=== PATIENT | female | born 1935 | race Caucasian/White ===

== ENCOUNTER 2016-11-18 10:15 | Emergency (ER) | payer MEDICAID ==
[~2016-11-18] VITALS: Ht 165.1 cm; Wt 63.0 kg
[2016-11-18 11:23] LABS: BASOPHILS % 0.2 % (0.0-2.0); EOSINOPHILS % 0.5 % (0.0-5.0); HEMATOCRIT. 39.4 % (36.0-48.0); HEMOGLOBIN. 13.1 g/dL (12.0-16.0); LYMPHOCYTES % 7.8 % (20.0-50.0); MEAN CORPUSCULAR HEMOGLOBIN 28.7 pg (28.0-32.0); MEAN CORPUSCULAR HGB CONC 33.2 g/dL (31.0-37.0); MEAN CORPUSCULAR VOLUME 86.6 fL (81.0-99.0); MEAN PLATELET VOLUME 8.9 fl (7.4-10.4); MONOCYTES % 5.8 % (2.0-8.0); NEUTROPHILS % 85.7 % (40.0-76.0); PLATELET 157 x1000/uL (130-400); RED BLOOD CELL COUNT 4.55 mill/uL (4.2-5.4); RED CELL DISTRIBUTION WIDTH 12.7 % (11.6-14.6)
[2016-11-18 11:25] LABS: CHLORIDE 100 mEq/L (98-107)
[2016-11-18 11:29] LABS: INR 1.1; PROTHROMBIN TIME 11.2 sec
[2016-11-18 11:37] LABS: ALANINE AMINOTRANSFERASE 26 IU/L (13-61); ALBUMIN 3.8 g/dL (3.4-5.0); ANION GAP 11; CALCIUM 8.8 mg/dL (8.5-10.1); CARBON DIOXIDE 34 mEq/L (21-32); INDEX HEMOLYSI 1 (1-3); INDEX ICTERIC 1 (1-4); INDEX LIPEMIC 1 (1-3); NT PRO B-TYPE NATRIURETIC PEP 379 pg/mL (5-125); TROPONIN I < 0.02 ng/mL (0.00-0.04); UREA NITROGEN BLOOD 23 mg/dL (7-21); eGFR > 60 mL/min (>60)
[2016-11-18] MEDS ORDERED: ONDANSETRON HCL 4MG/2ML VIAL IV ONE (11:45)
[2016-11-18 14:23] VITALS: BP 151/73
== END 2016-11-18 14:26 | disposition home or self-care (01) ==
LOC: ER 11:33
DX: R53.1 Weakness (principal); R05 Cough; R11.2 Nausea with vomiting, unspecified; R10.13 Epigastric pain; I10 Essential (primary) hypertension; E11.9 Type 2 diabetes mellitus without complications; Z95.5 Presence of coronary angioplasty implant and graft
CPT/HCPCS: 36415; 71010; 74176; 80053; 83880; 84484; 85025; 85610; 93005; 96374; 99285; J2405

== ENCOUNTER 2017-02-17 11:24 | Emergency (ER) | payer MEDICAID ==
[~2017-02-17] VITALS: Ht 165.1 cm; Wt 65.0 kg
[2017-02-17] MEDS ORDERED: TRAMADOL 50MG TABLET PO ONE (12:30)
[2017-02-17 12:40] LABS: BASOPHILS % 0.5 % (0.0-2.0); EOSINOPHILS % 0.8 % (0.0-5.0); HEMATOCRIT. 40.5 % (36.0-48.0); HEMOGLOBIN. 13.5 g/dL (12.0-16.0); LYMPHOCYTES % 25.3 % (20.0-50.0); MEAN CORPUSCULAR HEMOGLOBIN 28.5 pg (28.0-32.0); MEAN CORPUSCULAR VOLUME 85.7 fL (81.0-99.0); MEAN PLATELET VOLUME 8.8 fl (7.4-10.4); MONOCYTES % 7.4 % (2.0-8.0); PLATELET 155 x1000/uL (130-400); RED BLOOD CELL COUNT 4.73 mill/uL (4.2-5.4); RED CELL DISTRIBUTION WIDTH 13.3 % (11.6-14.6)
[2017-02-17 12:55] LABS: CARBON DIOXIDE 33 mEq/L (21-32); CHLORIDE 100 mEq/L (98-107); TROPONIN I < 0.02 ng/mL (0.00-0.04)
[2017-02-17 13:03] LABS: INR 1.1; PARTIAL THROMBOPLASTIN TIME 26.8 sec (24.0-34.0)
[2017-02-17 15:39] VITALS: BP 167/66
== END 2017-02-17 15:45 | disposition home or self-care (01) ==
LOC: ER 11:34
DX: M54.9 Dorsalgia, unspecified (principal); I10 Essential (primary) hypertension; E11.9 Type 2 diabetes mellitus without complications; I51.9 Heart disease, unspecified; M25.519 Pain in unspecified shoulder
CPT/HCPCS: 36415; 71010; 80053; 82962; 83690; 84484; 85025; 85610; 85730; 93005; 99285

== ENCOUNTER 2017-08-17 11:51 | Inpatient (IN) | payer MEDICAID ==
[~2017-08-17] VITALS: Ht 165.1 cm; Wt 63.5 kg
[2017-08-17 13:07] LABS: CLARITY URINE CLEAR (CLEAR); COLOR URINE YELLOW (YELLOW); KETONES URINE NEGATIVE (NEGATIVE); LEUKOCYTE ESTERASE URINE NEGATIVE (NEGATIVE); NITRITE URINE NEGATIVE (NEGATIVE); OCCULT BLOOD URINE NEGATIVE (NEGATIVE); PROTEIN URINE NEGATIVE (NEGATIVE); SPECIFIC GRAVITY URINE 1.028 (1.005-1.030)
[2017-08-17 13:19] LABS: BASOPHILS % 0.3 % (0.0-2.0); EOSINOPHILS % 1.3 % (0.0-5.0); HEMATOCRIT. 40.8 % (36.0-48.0); HEMOGLOBIN. 13.4 g/dL (12.0-16.0); LYMPHOCYTES % 21.2 % (20.0-50.0); MEAN CORPUSCULAR HEMOGLOBIN 28.5 pg (28.0-32.0); MEAN CORPUSCULAR VOLUME 86.6 fL (81.0-99.0); MEAN PLATELET VOLUME 9.2 fl (7.4-10.4); MONOCYTES % 7.7 % (2.0-8.0); NEUTROPHILS % 69.5 % (40.0-76.0); PLATELET 179 x1000/uL (130-400); RED BLOOD CELL COUNT 4.72 mill/uL (4.2-5.4)
[2017-08-17 13:21] LABS: PROTHROMBIN TIME 10.8 sec (9.4-11.6)
[2017-08-17 13:36] LABS: CARBON DIOXIDE 31 mEq/L (21-32); CHLORIDE 100 mEq/L (98-107); TROPONIN I < 0.02 ng/mL (0.00-0.04)
[2017-08-17 13:44] LABS: *AMPHETAMINES SCREEN URINE NEGATIVE (NEGATIVE); *BARBITURATES SCREEN URINE NEGATIVE (NEGATIVE); *BENZODIAZEPINES SCREEN URINE NEGATIVE (NEGATIVE); *COCAINE SCREEN URINE NEGATIVE (NEGATIVE); CANNABINOID URINE SCREEN NEGATIVE (NEGATIVE); METHADONE URINE SCREEN NEGATIVE (NEGATIVE); OPIATES URINE SCREEN NEGATIVE (NEGATIVE); PHENCYCLIDINE URINE SCREEN NEGATIVE (NEGATIVE)
[2017-08-17] MEDS ORDERED: ACETAMINOPHEN 325MG TABLET PO ONE (16:00)
[2017-08-17] MEDS ORDERED: IPRATROPIUM/ALBUTEROL 0.5-3(2.5)MG/3ML NEB INH PRN (20:00)
[2017-08-17] MEDS ORDERED: DOCUSATE SODIUM 100MG CAPSULE PO PRN (20:00)
[2017-08-17] MEDS ORDERED: CLONIDINE 0.1MG TABLET PO PRN (20:00)
[2017-08-17] MEDS ORDERED: MAGNESIUM/ALUMINUM HYDROXIDE/SIMETHICONE 30ML UDC PO PRN (20:00)
[2017-08-17] MEDS ORDERED: ACETAMINOPHEN 325MG TABLET PO PRN (20:00)
[2017-08-17] MEDS ORDERED: ONDANSETRON HCL 4MG/2ML VIAL IV PRN (20:00)
[2017-08-17] MEDS ORDERED: ENOXAPARIN 40MG/0.4ML SYR SUBCUT SCH (21:00)
[2017-08-17 21:53] VITALS: BP 190/61
[2017-08-17] MEDS: HYDROCODONE/ACETAMINOPHEN 5/325MG TABLET PO PRN (23:27)
[2017-08-18] VITALS: BP 184/64
[2017-08-18 01:15] LABS: CARBON DIOXIDE 31 mEq/L (21-32); CHLORIDE 100 mEq/L (98-107); CREATINE KINASE 319 IU/L (26-192); CREATINE KINASE MB FRACTION 6.8 ng/mL (0.5-3.6); TROPONIN I 0.04 ng/mL (0.00-0.04)
[2017-08-18] MEDS ORDERED: DEXTROSE 50% WATER 50ML SYRINGE IV PRN (02:00)
[2017-08-18 04:00] VITALS: BP 141/63
[2017-08-18] MEDS ORDERED: ASPI-867 PO (06:05)
[2017-08-18] MEDS ORDERED: ATEN-42 PO (06:06)
[2017-08-18] MEDS ORDERED: LOSA1TAB37 PO (06:08)
[2017-08-18] MEDS ORDERED: GABA-529 PO (06:09)
[2017-08-18] MEDS ORDERED: NPH,100V SQ (06:12)
[2017-08-18] MEDS ORDERED: ALBU18HF2 IH (06:12)
[2017-08-18] MEDS ORDERED: ACET-2178 PO (06:16)
[2017-08-18] MEDS ORDERED: SIMV20TA6 PO (06:16)
[2017-08-18] MEDS ORDERED: DIPH25CA83 PO (06:17)
[2017-08-18] MEDS: BLOOD SUGAR DIAGNOSTIC STRIP TEST SCH ×2 (06:33→12:40)
[2017-08-18] MEDS: INSULIN LISPRO 100 UNITS/ML SUBCUT SCH ×2 (07:08→13:31)
[2017-08-18 08:00] VITALS: BP 157/47
[2017-08-18 11:20] LABS: CREATINE KINASE MB FRACTION 6.4 ng/mL (0.5-3.6); TROPONIN I 0.02 ng/mL (0.00-0.04)
[2017-08-18] MEDS: HYDROCODONE/ACETAMINOPHEN 5/325MG TABLET PO PRN (11:44)
[2017-08-18 12:00] VITALS: BP 164/54
[2017-08-18 16:00] VITALS: BP 152/48
== END 2017-08-18 16:26 | disposition left against medical advice (07) | DRG 347 ==
LOC: ER 12:58 → 7WST 18:07 → ENRESERV 19:45
PROVIDERS: ADMIT Internal Medicine; ATTEND Internal Medicine
DX: M51.36 Other intervertebral disc degeneration, lumbar region (principal); E11.65 Type 2 diabetes mellitus with hyperglycemia; I10 Essential (primary) hypertension; M54.16 Radiculopathy, lumbar region; M50.30 Other cervical disc degeneration, unspecified cervical region; E87.1 Hypo-osmolality and hyponatremia; G89.29 Other chronic pain; M19.90 Unspecified osteoarthritis, unspecified site; Z79.899 Other long term (current) drug therapy; Z79.82 Long term (current) use of aspirin; Z79.4 Long term (current) use of insulin
CPT/HCPCS: 36415; 70450; 71010; 72040; 72070; 72100; 72141; 72146; 72148; 80048; 80053; 80061; 80305; 81001; 82550; 82553; 82962; 83036; 83880; 84443; 84484; 85025; 85610; 93005; 93970; 97166; 99285; J1650; J1815

== ENCOUNTER 2018-07-21 17:28 | Inpatient (IN) | payer MEDICAID ==
[2018-07-21] VITALS (9 sets, daily range): BP systolic 81–165; BP diastolic 34–100
[~2018-07-21] VITALS: Ht 157.5 cm; Wt 76.7 kg
[~2018-07-21 17:28] MED LIST: ACET-2178 PO; ALBU18HF2 IH; ASA5EC PO; ATEN-42 PO; DIPH25CA83 PO; GABA-529 PO; LOSA1TAB37 PO; NPH,100V SQ; SIMV20TA6 PO
[2018-07-21] MEDS ORDERED: NICARDIPINE 40MG/200ML PREMIX 200 ML IV PRN ×3 (18:00→21:42)
[2018-07-21 18:09] LABS: BASOPHILS % 0.3 % (0.0-2.0); EOSINOPHILS % 0.2 % (0.0-5.0); HEMATOCRIT. 45.3 % (36.0-48.0); HEMOGLOBIN. 15.1 g/dL (12.0-16.0); MEAN CORPUSCULAR HEMOGLOBIN 28.9 pg (28.0-32.0); MEAN CORPUSCULAR VOLUME 86.7 fL (81.0-99.0); MEAN PLATELET VOLUME 9.2 fl (7.4-10.4); MONOCYTES % 11.3 % (2.0-8.0); NEUTROPHILS % 61.2 % (40.0-76.0); PLATELET 203 x1000/uL (130-400); RED BLOOD CELL COUNT 5.22 mill/uL (4.2-5.4)
[2018-07-21 18:16] LABS: CHLORIDE 97 mEq/L (98-107)
[2018-07-21 18:17] LABS: PROTHROMBIN TIME 10.2 sec (9.1-11.1)
[2018-07-21 18:20] LABS: ETHANOL BLOOD < 10 mg/dL
[2018-07-21] MEDS ORDERED: LEVETIRACETAM 1000MG/100ML 100 ML IV ONE (18:30)
[2018-07-21] MEDS ORDERED: DEXAMETHASONE 4MG/ML 1ML VIAL IV ONE (19:15)
[2018-07-21 20:28] LABS: CLARITY URINE CLEAR (CLEAR); COLOR URINE YELLOW (YELLOW); KETONES URINE TRACE (NEGATIVE); LEUKOCYTE ESTERASE URINE NEGATIVE (NEGATIVE); NITRITE URINE NEGATIVE (NEGATIVE); OCCULT BLOOD URINE TRACE (NEGATIVE); PH URINE 5.5 (4.5-8.0); PROTEIN URINE 2+ (NEGATIVE); SPECIFIC GRAVITY URINE 1.033 (1.005-1.030); UROBILINOGEN URINE 0.2 E.U./dL (0.2-1.0)
[2018-07-21 20:41] LABS: *AMPHETAMINES SCREEN URINE NEGATIVE (NEGATIVE); *BARBITURATES SCREEN URINE NEGATIVE (NEGATIVE); METHADONE URINE SCREEN NEGATIVE (NEGATIVE); OPIATES URINE SCREEN NEGATIVE (NEGATIVE); PHENCYCLIDINE URINE SCREEN NEGATIVE (NEGATIVE)
[2018-07-21 20:42] LABS: *BENZODIAZEPINES SCREEN URINE NEGATIVE (NEGATIVE); *COCAINE SCREEN URINE NEGATIVE (NEGATIVE); CANNABINOID URINE SCREEN NEGATIVE (NEGATIVE)
[2018-07-21] MEDS ORDERED: ONDANSETRON HCL 4MG/2ML INJ IV PRN (21:45)
[2018-07-21] MEDS ORDERED: IPRATROPIUM/ALBUTEROL 0.5-3(2.5)MG/3ML NEB INH PRN (21:45)
[2018-07-21] MEDS ORDERED: ACETAMINOPHEN 650MG SUPP PR PRN (21:45)
[2018-07-21] MEDS ORDERED: NICARDIPINE 100 MG in SODIUM CHLORIDE 0.9% 60 ML IV PRN ×4 (22:00)
[2018-07-21] MEDS: DEXT 5%/LACTATED RINGERS 1,000 ML IV SCH (22:08)
[2018-07-21 23:14] LABS: CHLORIDE 98 mEq/L (98-107)
[2018-07-21 23:23] LABS: CREATINE KINASE 149 IU/L (26-192)
[2018-07-21 23:24] LABS: CREATINE KINASE MB FRACTION 5.3 ng/mL (0.5-3.6)
[2018-07-21] MEDS: DEXAMETHASONE 4MG/ML 1ML VIAL IV SCH (23:26)
[2018-07-21] MEDS: INSULIN LISPRO 100 UNITS/ML SUBCUT SCH (23:27)
[2018-07-21] MEDS: BLOOD SUGAR DIAGNOSTIC STRIP TEST SCH (23:27)
[2018-07-21] MEDS: LEVETIRACETAM 500 MG in SODIUM CHLORIDE 0.9% 100 ML IV SCH (23:27)
[2018-07-21] MEDS: PANTOPRAZOLE SODIUM 40 MG/VIAL IV SCH (23:48)
[2018-07-22] VITALS (90 sets, daily range): BP systolic 91–171; BP diastolic 42–132
[2018-07-22] MEDS ORDERED: INSULIN LISPRO 100 UNITS/ML SUBCUT NR (01:00)
[2018-07-22] MEDS: NITROPRUSSIDE 100 MG in SODIUM CHLORIDE 0.9% 246 ML IV PRN (05:25)
[2018-07-22 06:12] LABS: BASOPHILS % 0.1 % (0.0-2.0); HEMATOCRIT. 38.8 % (36.0-48.0); HEMOGLOBIN. 12.7 g/dL (12.0-16.0); LYMPHOCYTES % 12.6 % (20.0-50.0); MEAN CORPUSCULAR HEMOGLOBIN 28.7 pg (28.0-32.0); MEAN CORPUSCULAR VOLUME 87.3 fL (81.0-99.0); MEAN PLATELET VOLUME 9.5 fl (7.4-10.4); MONOCYTES % 2.3 % (2.0-8.0); PLATELET 182 x1000/uL (130-400); RED BLOOD CELL COUNT 4.44 mill/uL (4.2-5.4); RED CELL DISTRIBUTION WIDTH 12.5 % (11.6-14.6)
[2018-07-22] MEDS: BLOOD SUGAR DIAGNOSTIC STRIP TEST SCH ×3 (06:19→17:38)
[2018-07-22 06:20] LABS: CREATINE KINASE MB FRACTION 5.5 ng/mL (0.5-3.6)
[2018-07-22] MEDS: DEXAMETHASONE 4MG/ML 1ML VIAL IV SCH ×3 (06:25→17:42)
[2018-07-22] MEDS: INSULIN LISPRO 100 UNITS/ML SUBCUT SCH ×3 (06:26→18:06)
[2018-07-22] MEDS: HYDROMORPHONE HCL/PF 2MG/ML CPJ IV PRN ×3 (06:36→20:46)
[2018-07-22] MEDS ORDERED: INSULIN LISPRO 100 UNITS/ML SUBCUT ONE (08:45)
[2018-07-22] MEDS: LEVETIRACETAM 500 MG in SODIUM CHLORIDE 0.9% 100 ML IV SCH ×2 (08:46→20:53)
[2018-07-22] MEDS: PANTOPRAZOLE SODIUM 40 MG/VIAL IV SCH (08:46)
[2018-07-22] MEDS ORDERED: INSULIN GLARGINE UD 100 UNITS/ML SYR SUBCUT SCH (10:00)
[2018-07-22] MEDS: DEXT 5%/LACTATED RINGERS 1,000 ML IV SCH (17:47)
[2018-07-23] VITALS (92 sets, daily range): BP systolic 105–177; BP diastolic 46–129
[2018-07-23] MEDS: DEXAMETHASONE 4MG/ML 1ML VIAL IV SCH ×5 (00:07→23:38)
[2018-07-23] MEDS: INSULIN LISPRO 100 UNITS/ML SUBCUT SCH ×5 (00:07→23:38)
[2018-07-23] MEDS: BLOOD SUGAR DIAGNOSTIC STRIP TEST SCH ×5 (00:07→23:38)
[2018-07-23] MEDS: HYDROMORPHONE HCL/PF 2MG/ML CPJ IV PRN ×4 (01:57→20:45)
[2018-07-23 05:40] LABS: HEMOGLOBIN. 12.6 g/dL (12.0-16.0); MEAN CORPUSCULAR HEMOGLOBIN 28.3 pg (28.0-32.0); MEAN CORPUSCULAR VOLUME 87.5 fL (81.0-99.0); MEAN PLATELET VOLUME 9.3 fl (7.4-10.4); PLATELET 194 x1000/uL (130-400); RED BLOOD CELL COUNT 4.46 mill/uL (4.2-5.4); RED CELL DISTRIBUTION WIDTH 12.8 % (11.6-14.6)
[2018-07-23 05:44] LABS: CHLORIDE 104 mEq/L (98-107)
[2018-07-23 05:55] LABS: LDL CHOLESTEROL 66 mg/dL (5-100)
[2018-07-23 05:56] LABS: CREATINE KINASE 130 IU/L (26-192); CREATINE KINASE MB FRACTION 5.3 ng/mL (0.5-3.6)
[2018-07-23 05:57] LABS: HDL CHOLESTEROL 65 mg/dL (40-59)
[2018-07-23] MEDS: LEVETIRACETAM 500 MG in SODIUM CHLORIDE 0.9% 100 ML IV SCH ×2 (08:28→21:44)
[2018-07-23] MEDS: PANTOPRAZOLE SODIUM 40 MG/VIAL IV SCH (08:28)
[2018-07-23 10:20] LABS: PLATELET ESTIMATE NORMAL
[2018-07-23 11:10] LABS: T4 FREE 1.41 ng/dL (0.76-1.46)
[2018-07-23] MEDS: INSULIN GLARGINE UD 100 UNITS/ML SYR SUBCUT SCH ×2 (12:25→21:45)
[2018-07-23] MEDS: DEXT 5%/LACTATED RINGERS 1,000 ML IV SCH (14:00)
[2018-07-24] VITALS (96 sets, daily range): BP systolic 94–178; BP diastolic 42–90
[2018-07-24] MEDS: DEXAMETHASONE 4MG/ML 1ML VIAL IV SCH ×3 (05:37→17:35)
[2018-07-24] MEDS: HYDROMORPHONE HCL/PF 2MG/ML CPJ IV PRN ×4 (05:37→21:19)
[2018-07-24 05:57] LABS: HEMATOCRIT. 38.6 % (36.0-48.0); HEMOGLOBIN. 12.4 g/dL (12.0-16.0); MEAN CORPUSCULAR HEMOGLOBIN 28.3 pg (28.0-32.0); MEAN CORPUSCULAR VOLUME 87.9 fL (81.0-99.0); MEAN PLATELET VOLUME 9.2 fl (7.4-10.4); PLATELET 206 x1000/uL (130-400)
[2018-07-24] MEDS: INSULIN LISPRO 100 UNITS/ML SUBCUT SCH ×3 (06:00→18:00)
[2018-07-24 06:13] LABS: CHLORIDE 110 mEq/L (98-107)
[2018-07-24] MEDS: BLOOD SUGAR DIAGNOSTIC STRIP TEST SCH ×4 (06:24→23:37)
[2018-07-24 07:27] LABS: PLATELET ESTIMATE NORMAL
[2018-07-24] MEDS: LEVETIRACETAM 500 MG in SODIUM CHLORIDE 0.9% 100 ML IV SCH ×2 (09:00→22:05)
[2018-07-24] MEDS: PANTOPRAZOLE SODIUM 40 MG/VIAL IV SCH (09:00)
[2018-07-24] MEDS: DEXT 5%/LACTATED RINGERS 1,000 ML IV SCH (09:01)
[2018-07-24] MEDS ORDERED: VISCOUS LIDOCAINE 2% 15 ML UDC MM NR (10:00)
[2018-07-24] MEDS: INSULIN GLARGINE UD 100 UNITS/ML SYR SUBCUT SCH ×2 (10:05→22:05)
[2018-07-24] MEDS ORDERED: LIDOCAINE HCL 2% JELLY 5ML MM SCH (10:15)
[2018-07-24] MEDS: AMLODIPINE 5MG TABLET PO SCH ×2 (10:42→22:11)
[2018-07-24] MEDS: LOSARTAN POTASSIUM 25 MG TABLET PO SCH ×2 (17:35→22:11)
[2018-07-24] MEDS: PIPERACILLIN/TAZ 3.375G PREMIX 50 ML IV SCH (17:35)
[2018-07-24] MEDS: VANCOMYCIN HCL 1000 MG/20 ML ORAL PO SCH (19:50)
[2018-07-24] MEDS: IPRATROPIUM/ALBUTEROL 0.5-3(2.5)MG/3ML NEB HHN SCH (21:13)
[2018-07-25] VITALS (66 sets, daily range): BP systolic 78–205; BP diastolic 41–103
[2018-07-25] MEDS: VANCOMYCIN HCL 1000 MG/20 ML ORAL PO SCH ×4 (00:29→17:40)
[2018-07-25] MEDS: PIPERACILLIN/TAZ 3.375G PREMIX 50 ML IV SCH ×5 (00:29→23:13)
[2018-07-25] MEDS: DEXAMETHASONE 4MG/ML 1ML VIAL IV SCH ×5 (00:29→23:13)
[2018-07-25] MEDS: INSULIN LISPRO 100 UNITS/ML SUBCUT SCH ×5 (00:30→23:14)
[2018-07-25] MEDS: IPRATROPIUM/ALBUTEROL 0.5-3(2.5)MG/3ML NEB HHN SCH ×4 (02:27→20:49)
[2018-07-25] MEDS: HYDROMORPHONE HCL/PF 2MG/ML CPJ IV PRN ×5 (04:53→23:04)
[2018-07-25] MEDS: DEXT 5%/LACTATED RINGERS 1,000 ML IV SCH ×2 (04:55→09:05)
[2018-07-25] MEDS: BLOOD SUGAR DIAGNOSTIC STRIP TEST SCH ×4 (05:02→23:09)
[2018-07-25 05:51] LABS: BASOPHILS % 0.1 % (0.0-2.0); EOSINOPHILS % 0.1 % (0.0-5.0); HEMATOCRIT. 41.8 % (36.0-48.0); HEMOGLOBIN. 13.6 g/dL (12.0-16.0); LYMPHOCYTES % 11.5 % (20.0-50.0); MEAN CORPUSCULAR HEMOGLOBIN 28.5 pg (28.0-32.0); MEAN CORPUSCULAR VOLUME 87.8 fL (81.0-99.0); MEAN PLATELET VOLUME 9.2 fl (7.4-10.4); MONOCYTES % 14.4 % (2.0-8.0); NEUTROPHILS % 73.9 % (40.0-76.0); PLATELET 177 x1000/uL (130-400); RED BLOOD CELL COUNT 4.76 mill/uL (4.2-5.4)
[2018-07-25 06:07] LABS: CHLORIDE 107 mEq/L (98-107)
[2018-07-25 07:54] LABS: BG BASE EXCESS 8.8 mmol/L (-2.0-2.0); BG CARBOXYHEMOGLOBIN 0.4 % (0.5-1.5); BG DEOXYHEMOGLOBIN 1.3 % (0.0-5.0); BG FRACTION INSPIRED OXYGEN 36; BG HCO3 ACT 34.7 mmol/L (22.0-26.0); BG METHEMOGLOBIN 0.3 % (0.0-1.5); BG OXYGEN SATURATION 98.7 % (92.0-98.5); BG PCO2 53.6 mmHg (35.0-45.0); BG PH 7.429 (7.350-7.450); BG SAMPLE SITE RIGHT RADIAL; BG TOTAL HEMOGLOBIN 12.7 g/dL (12.0-18.0); BG VENT MODE NASAL CANNULA
[2018-07-25 08:30] LABS: CLARITY URINE CLEAR (CLEAR); COLOR URINE YELLOW (YELLOW); KETONES URINE NEGATIVE (NEGATIVE); LEUKOCYTE ESTERASE URINE NEGATIVE (NEGATIVE); NITRITE URINE NEGATIVE (NEGATIVE); OCCULT BLOOD URINE TRACE (NEGATIVE); PH URINE 5.5 (4.5-8.0); PROTEIN URINE 1+ (NEGATIVE); SPECIFIC GRAVITY URINE 1.036 (1.005-1.030); UROBILINOGEN URINE 0.2 E.U./dL (0.2-1.0)
[2018-07-25] MEDS: AMLODIPINE 5MG TABLET PO SCH ×2 (09:11→20:50)
[2018-07-25] MEDS: LOSARTAN POTASSIUM 25 MG TABLET PO SCH (09:11)
[2018-07-25] MEDS: PANTOPRAZOLE SODIUM 40 MG/VIAL IV SCH ×2 (09:11→20:50)
[2018-07-25] MEDS: LEVETIRACETAM 500 MG in SODIUM CHLORIDE 0.9% 100 ML IV SCH ×2 (09:11→20:50)
[2018-07-25] MEDS: INSULIN GLARGINE UD 100 UNITS/ML SYR SUBCUT SCH ×2 (10:01→21:07)
[2018-07-25] MEDS: NITROPRUSSIDE 100 MG in SODIUM CHLORIDE 0.9% 246 ML IV PRN (11:33)
[2018-07-25] MEDS ORDERED: FUROSEMIDE 40MG/4ML VIAL IVP NR (11:45)
[2018-07-25] MEDS ORDERED: CLONIDINE 0.1MG TABLET PO PRN (11:45)
[2018-07-25] MEDS ORDERED: POTASSIUM CHLORIDE 20MEQ TABLET SR PO NR (11:45)
[2018-07-25] MEDS: HYDRALAZINE HCL 50MG TABLET PO SCH ×2 (15:44→21:08)
[2018-07-25] MEDS: LOSARTAN POTASSIUM 50 MG TABLET PO SCH (20:50)
[2018-07-26] VITALS (97 sets, daily range): BP systolic 87–183; BP diastolic 45–100
[2018-07-26] MEDS: HYDROMORPHONE HCL/PF 2MG/ML CPJ IV PRN ×4 (04:09→21:02)
[2018-07-26] MEDS: HYDRALAZINE HCL 50MG TABLET PO SCH ×3 (05:02→15:21)
[2018-07-26] MEDS: PIPERACILLIN/TAZ 3.375G PREMIX 50 ML IV SCH ×4 (05:02→23:26)
[2018-07-26] MEDS: VANCOMYCIN HCL 1000 MG/20 ML ORAL PO SCH ×5 (05:02→23:26)
[2018-07-26] MEDS: BLOOD SUGAR DIAGNOSTIC STRIP TEST SCH ×4 (05:02→23:42)
[2018-07-26] MEDS: DEXAMETHASONE 4MG/ML 1ML VIAL IV SCH ×4 (05:02→23:48)
[2018-07-26] MEDS: INSULIN LISPRO 100 UNITS/ML SUBCUT SCH ×4 (05:03→23:49)
[2018-07-26] MEDS: DEXT 5%/LACTATED RINGERS 1,000 ML IV SCH (05:06)
[2018-07-26 05:28] LABS: HEMATOCRIT. 39.2 % (36.0-48.0); HEMOGLOBIN. 12.6 g/dL (12.0-16.0); MEAN CORPUSCULAR HEMOGLOBIN 28.2 pg (28.0-32.0); MEAN CORPUSCULAR VOLUME 87.5 fL (81.0-99.0); MEAN PLATELET VOLUME 9.4 fl (7.4-10.4); PLATELET 169 x1000/uL (130-400); RED BLOOD CELL COUNT 4.49 mill/uL (4.2-5.4); RED CELL DISTRIBUTION WIDTH 13.1 % (11.6-14.6)
[2018-07-26 05:30] LABS: CHLORIDE 107 mEq/L (98-107)
[2018-07-26 05:37] LABS: INR 1.1; PARTIAL THROMBOPLASTIN TIME 24.7 sec (23.4-31.0); PROTHROMBIN TIME 10.6 sec (9.1-11.1)
[2018-07-26] MEDS: LEVETIRACETAM 500 MG in SODIUM CHLORIDE 0.9% 100 ML IV SCH ×2 (08:16→21:02)
[2018-07-26] MEDS: PANTOPRAZOLE SODIUM 40 MG/VIAL IV SCH ×2 (08:16→21:02)
[2018-07-26] MEDS: LOSARTAN POTASSIUM 50 MG TABLET PO SCH ×2 (08:57→21:02)
[2018-07-26] MEDS: AMLODIPINE 5MG TABLET PO SCH ×2 (08:57→21:02)
[2018-07-26 09:36] LABS: PLATELET ESTIMATE NORMAL
[2018-07-26] MEDS: INSULIN GLARGINE UD 100 UNITS/ML SYR SUBCUT SCH ×2 (10:00→22:02)
[2018-07-26] MEDS ORDERED: POTASSIUM CHLORIDE INJ 40 MEQ in DEXT 5% WATER 250 ML IV NR (11:00)
[2018-07-26] MEDS: NITROPRUSSIDE 100 MG in SODIUM CHLORIDE 0.9% 246 ML IV PRN (11:31)
[2018-07-26] MEDS ORDERED: MIDAZOLAM HCL 5 MG/5 ML VIAL ONE (12:10)
[2018-07-26] MEDS ORDERED: FENTANYL CITRATE/PF 50MCG/ML 2ML VIAL ONE (12:10)
[2018-07-26] MEDS ORDERED: FENTANYL CITRATE/PF 50MCG/ML 2ML VIAL IV PRN (12:32)
[2018-07-26] MEDS ORDERED: MIDAZOLAM HCL 5 MG/5 ML VIAL IV PRN (12:34)
[2018-07-26] MEDS: IPRATROPIUM/ALBUTEROL 0.5-3(2.5)MG/3ML NEB HHN SCH ×2 (13:35→20:02)
[2018-07-26] MEDS ORDERED: FUROSEMIDE 40MG/4ML VIAL IVP NR (16:00)
[2018-07-27] VITALS (94 sets, daily range): BP systolic 106–186; BP diastolic 46–97
[2018-07-27] MEDS: IPRATROPIUM/ALBUTEROL 0.5-3(2.5)MG/3ML NEB HHN SCH ×4 (01:17→20:41)
[2018-07-27] MEDS: NITROPRUSSIDE 100 MG in SODIUM CHLORIDE 0.9% 246 ML IV PRN ×2 (02:53→11:28)
[2018-07-27] MEDS: HYDROMORPHONE HCL/PF 2MG/ML CPJ IV PRN ×4 (04:19→22:09)
[2018-07-27] MEDS: BLOOD SUGAR DIAGNOSTIC STRIP TEST SCH ×3 (05:24→17:29)
[2018-07-27] MEDS: DEXAMETHASONE 4MG/ML 1ML VIAL IV SCH ×3 (05:28→17:27)
[2018-07-27] MEDS: PIPERACILLIN/TAZ 3.375G PREMIX 50 ML IV SCH ×3 (05:28→17:27)
[2018-07-27] MEDS: INSULIN LISPRO 100 UNITS/ML SUBCUT SCH ×3 (05:30→17:28)
[2018-07-27] MEDS: VANCOMYCIN HCL 1000 MG/20 ML ORAL PO SCH ×3 (06:00→17:18)
[2018-07-27] MEDS: HYDRALAZINE HCL 50MG TABLET PO SCH ×2 (06:00→13:36)
[2018-07-27 07:24] LABS: HEMOGLOBIN. 11.8 g/dL (12.0-16.0); MEAN CORPUSCULAR HEMOGLOBIN 28.6 pg (28.0-32.0); MEAN CORPUSCULAR VOLUME 87.4 fL (81.0-99.0); MEAN PLATELET VOLUME 9.3 fl (7.4-10.4); PLATELET 170 x1000/uL (130-400); RED BLOOD CELL COUNT 4.12 mill/uL (4.2-5.4); RED CELL DISTRIBUTION WIDTH 13.3 % (11.6-14.6)
[2018-07-27 07:27] LABS: CHLORIDE 110 mEq/L (98-107)
[2018-07-27] MEDS: LOSARTAN POTASSIUM 50 MG TABLET PO SCH ×2 (08:22→20:47)
[2018-07-27] MEDS: AMLODIPINE 5MG TABLET PO SCH ×2 (08:22→20:47)
[2018-07-27 08:52] LABS: NUCLEATED RED BLOOD CELLS 1 /100 WBC; PLATELET ESTIMATE NORMAL
[2018-07-27] MEDS: LEVETIRACETAM 500 MG in SODIUM CHLORIDE 0.9% 100 ML IV SCH ×2 (08:52→20:48)
[2018-07-27] MEDS: INSULIN GLARGINE UD 100 UNITS/ML SYR SUBCUT SCH ×2 (08:54→22:11)
[2018-07-27] MEDS ORDERED: KCL 20MEQ/100ML PREMIX 100 ML IV SCH (10:00)
[2018-07-27] MEDS: LORAZEPAM 2MG/ML CPJ IV PRN ×2 (10:22→18:28)
[2018-07-27] MEDS ORDERED: SODIUM CHLORIDE 0.9% 10ML VIAL ONE ×2 (10:41→11:43)
[2018-07-27] MEDS ORDERED: SIMETHICONE 40 MG/0.6 ML 30ML ONE ×2 (10:41→11:43)
[2018-07-27] MEDS: HYDRALAZINE 20MG/ML VIAL IV PRN ×2 (11:10→17:01)
[2018-07-27 11:17] LABS: BG BASE EXCESS 12.8 mmol/L (-2.0-2.0); BG CARBOXYHEMOGLOBIN 0.8 % (0.5-1.5); BG DEOXYHEMOGLOBIN 2.4 % (0.0-5.0); BG FRACTION INSPIRED OXYGEN 32; BG HCO3 ACT 37.5 mmol/L (22.0-26.0); BG METHEMOGLOBIN 0.4 % (0.0-1.5); BG OXYGEN SATURATION 97.6 % (92.0-98.5); BG OXYHEMOGLOBIN 96.4 % (94.0-97.0); BG PCO2 48.3 mmHg (35.0-45.0); BG PH 7.508 (7.350-7.450); BG PO2 94.9 mmHg (75.0-100.0); BG SAMPLE SITE RIGHT RADIAL; BG TOTAL HEMOGLOBIN 11.6 g/dL (12.0-18.0); BG VENT MODE NASAL CANNULA
[2018-07-27] MEDS ORDERED: MIDAZOLAM HCL 5 MG/5 ML VIAL ONE ×2 (16:16→16:17)
[2018-07-27] MEDS ORDERED: FENTANYL CITRATE/PF 50MCG/ML 2ML VIAL ONE (16:17)
[2018-07-27] MEDS ORDERED: MIDAZOLAM HCL 2 MG/2 ML VIAL IV PRN (17:45)
[2018-07-27] MEDS: DEXT 5%/LACTATED RINGERS 1,000 ML IV SCH (18:00)
[2018-07-28] VITALS (96 sets, daily range): BP systolic 111–181; BP diastolic 48–94
[2018-07-28] MEDS: PIPERACILLIN/TAZ 3.375G PREMIX 50 ML IV SCH ×4 (00:19→17:52)
[2018-07-28] MEDS: DEXAMETHASONE 4MG/ML 1ML VIAL IV SCH ×4 (00:19→17:52)
[2018-07-28] MEDS: BLOOD SUGAR DIAGNOSTIC STRIP TEST SCH ×4 (00:20→17:53)
[2018-07-28] MEDS: HYDRALAZINE HCL 50MG TABLET PO SCH ×2 (00:20→06:07)
[2018-07-28] MEDS: VANCOMYCIN HCL 1000 MG/20 ML ORAL PO SCH ×4 (00:36→17:52)
[2018-07-28] MEDS: INSULIN LISPRO 100 UNITS/ML SUBCUT SCH ×4 (00:37→17:53)
[2018-07-28] MEDS: IPRATROPIUM/ALBUTEROL 0.5-3(2.5)MG/3ML NEB HHN SCH ×4 (00:49→20:40)
[2018-07-28] MEDS: HYDROMORPHONE HCL/PF 2MG/ML CPJ IV PRN ×4 (01:43→21:07)
[2018-07-28] MEDS: LORAZEPAM 2MG/ML CPJ IV PRN (05:36)
[2018-07-28 05:44] LABS: HEMATOCRIT. 37.7 % (36.0-48.0); MEAN CORPUSCULAR VOLUME 87.8 fL (81.0-99.0); MEAN PLATELET VOLUME 9.3 fl (7.4-10.4); PLATELET 164 x1000/uL (130-400); RED BLOOD CELL COUNT 4.29 mill/uL (4.2-5.4); RED CELL DISTRIBUTION WIDTH 13.3 % (11.6-14.6)
[2018-07-28 06:06] LABS: CHLORIDE 114 mEq/L (98-107)
[2018-07-28 07:15] LABS: PLATELET ESTIMATE NORMAL
[2018-07-28] MEDS: NITROPRUSSIDE 100 MG in SODIUM CHLORIDE 0.9% 246 ML IV PRN (07:46)
[2018-07-28] MEDS: AMLODIPINE 5MG TABLET PO SCH ×2 (09:36→20:59)
[2018-07-28] MEDS: LOSARTAN POTASSIUM 50 MG TABLET PO SCH ×2 (09:36→20:59)
[2018-07-28] MEDS: LEVETIRACETAM 500 MG in SODIUM CHLORIDE 0.9% 100 ML IV SCH ×2 (09:36→20:58)
[2018-07-28] MEDS: INSULIN GLARGINE UD 100 UNITS/ML SYR SUBCUT SCH ×2 (09:37→21:06)
[2018-07-28] MEDS: SODIUM CHLORIDE 0.9% 1,000 ML IV SCH (10:14)
[2018-07-28] MEDS: HYDRALAZINE 20MG/ML VIAL IV PRN (10:19)
[2018-07-28] MEDS: HYDRALAZINE HCL 100MG TABLET PO SCH ×2 (13:43→20:59)
[2018-07-28] MEDS: CLONIDINE 0.1MG TABLET PO SCH ×2 (13:44→17:52)
[2018-07-28] MEDS ORDERED: HYDROCODONE/ACETAMINOPHEN 5/325MG TABLET PO PRN (17:15)
[2018-07-28] MEDS ORDERED: MIDAZOLAM HCL 5 MG/5 ML VIAL IV PRN (17:45)
[2018-07-28 21:11] LABS: CHLORIDE 116 mEq/L (98-107)
[2018-07-29] VITALS (67 sets, daily range): BP systolic 122–159; BP diastolic 46–76
[2018-07-29] MEDS: DEXAMETHASONE 4MG/ML 1ML VIAL IV SCH ×5 (00:09→23:18)
[2018-07-29] MEDS: PIPERACILLIN/TAZ 3.375G PREMIX 50 ML IV SCH ×5 (00:10→23:18)
[2018-07-29] MEDS: VANCOMYCIN HCL 1000 MG/20 ML ORAL PO SCH ×5 (00:10→23:18)
[2018-07-29] MEDS: INSULIN LISPRO 100 UNITS/ML SUBCUT SCH ×5 (00:11→23:20)
[2018-07-29] MEDS: LORAZEPAM 2MG/ML CPJ IV PRN (00:12)
[2018-07-29] MEDS: BLOOD SUGAR DIAGNOSTIC STRIP TEST SCH ×5 (00:12→23:15)
[2018-07-29] MEDS: SODIUM CHLORIDE 0.9% 1,000 ML IV SCH ×2 (00:14→16:22)
[2018-07-29] MEDS: IPRATROPIUM/ALBUTEROL 0.5-3(2.5)MG/3ML NEB HHN SCH ×4 (00:28→21:17)
[2018-07-29] MEDS: HYDROMORPHONE HCL/PF 2MG/ML CPJ IV PRN ×4 (02:02→22:28)
[2018-07-29] MEDS: HYDRALAZINE 20MG/ML VIAL IV PRN (02:43)
[2018-07-29 05:51] LABS: CHLORIDE 117 mEq/L (98-107); HEMATOCRIT. 40.1 % (36.0-48.0); HEMOGLOBIN. 12.8 g/dL (12.0-16.0); MEAN CORPUSCULAR HEMOGLOBIN 28.7 pg (28.0-32.0); MEAN CORPUSCULAR VOLUME 89.6 fL (81.0-99.0); MEAN PLATELET VOLUME 10.4 fl (7.4-10.4); PLATELET 100 x1000/uL (130-400); RED BLOOD CELL COUNT 4.48 mill/uL (4.2-5.4); RED CELL DISTRIBUTION WIDTH 13.9 % (11.6-14.6)
[2018-07-29] MEDS: HYDRALAZINE HCL 100MG TABLET PO SCH ×3 (06:02→21:18)
[2018-07-29 07:36] LABS: PLATELET ESTIMATE DECREASED
[2018-07-29] MEDS: CLONIDINE 0.1MG TABLET PO SCH ×2 (08:39→16:57)
[2018-07-29] MEDS: LOSARTAN POTASSIUM 50 MG TABLET PO SCH ×2 (08:39→21:18)
[2018-07-29] MEDS: LEVETIRACETAM 500 MG in SODIUM CHLORIDE 0.9% 100 ML IV SCH ×2 (08:39→21:18)
[2018-07-29] MEDS: AMLODIPINE 5MG TABLET PO SCH ×2 (08:40→21:17)
[2018-07-29] MEDS: INSULIN GLARGINE UD 100 UNITS/ML SYR SUBCUT SCH ×2 (11:20→23:19)
[2018-07-29] MEDS: ACETAMINOPHEN 650MG/20.3ML UDC PO PRN (21:18)
[2018-07-30] VITALS (47 sets, daily range): BP systolic 120–160; BP diastolic 41–99
[2018-07-30] MEDS: IPRATROPIUM/ALBUTEROL 0.5-3(2.5)MG/3ML NEB HHN SCH ×4 (02:20→20:19)
[2018-07-30] MEDS: HYDROMORPHONE HCL/PF 2MG/ML CPJ IV PRN ×5 (03:58→21:54)
[2018-07-30] MEDS: BLOOD SUGAR DIAGNOSTIC STRIP TEST SCH ×4 (05:24→23:29)
[2018-07-30] MEDS: INSULIN LISPRO 100 UNITS/ML SUBCUT SCH ×4 (05:24→23:35)
[2018-07-30 05:27] LABS: HEMOGLOBIN. 13.6 g/dL (12.0-16.0); MEAN CORPUSCULAR HEMOGLOBIN 28.7 pg (28.0-32.0); MEAN CORPUSCULAR VOLUME 88.4 fL (81.0-99.0); MEAN PLATELET VOLUME 9.1 fl (7.4-10.4); PLATELET 131 x1000/uL (130-400); RED BLOOD CELL COUNT 4.75 mill/uL (4.2-5.4); RED CELL DISTRIBUTION WIDTH 13.3 % (11.6-14.6)
[2018-07-30] MEDS: PIPERACILLIN/TAZ 3.375G PREMIX 50 ML IV SCH ×4 (05:29→23:53)
[2018-07-30] MEDS: HYDRALAZINE HCL 100MG TABLET PO SCH ×3 (05:29→21:12)
[2018-07-30] MEDS: DEXAMETHASONE 4MG/ML 1ML VIAL IV SCH ×3 (05:29→17:01)
[2018-07-30] MEDS: SODIUM CHLORIDE 0.9% 1,000 ML IV SCH (05:29)
[2018-07-30] MEDS: VANCOMYCIN HCL 1000 MG/20 ML ORAL PO SCH ×4 (05:33→23:53)
[2018-07-30 05:34] LABS: CHLORIDE 114 mEq/L (98-107)
[2018-07-30 07:27] LABS: PLATELET ESTIMATE NORMAL
[2018-07-30] MEDS: CLONIDINE 0.1MG TABLET PO SCH ×2 (09:21→17:02)
[2018-07-30] MEDS: LOSARTAN POTASSIUM 50 MG TABLET PO SCH ×2 (09:21→21:12)
[2018-07-30] MEDS: LEVETIRACETAM 500 MG in SODIUM CHLORIDE 0.9% 100 ML IV SCH (09:21)
[2018-07-30] MEDS: AMLODIPINE 5MG TABLET PO SCH ×2 (09:21→21:12)
[2018-07-30] MEDS: INSULIN GLARGINE UD 100 UNITS/ML SYR SUBCUT SCH ×2 (11:24→21:18)
[2018-07-30] MEDS: LEVETIRACETAM 500MG/5ML CUP PO SCH (21:12)
[2018-07-30] MEDS: ACETAMINOPHEN 650MG/20.3ML UDC PO PRN (21:12)
[2018-07-31] VITALS (38 sets, daily range): BP systolic 99–154; BP diastolic 37–92
[2018-07-31] MEDS: IPRATROPIUM/ALBUTEROL 0.5-3(2.5)MG/3ML NEB HHN SCH ×3 (01:20→13:09)
[2018-07-31] MEDS: HYDRALAZINE HCL 100MG TABLET PO SCH ×2 (05:25→14:15)
[2018-07-31] MEDS: BLOOD SUGAR DIAGNOSTIC STRIP TEST SCH ×3 (05:25→17:20)
[2018-07-31] MEDS: VANCOMYCIN HCL 1000 MG/20 ML ORAL PO SCH ×3 (05:25→17:20)
[2018-07-31] MEDS: DEXTROSE 50% WATER 50ML SYRINGE IV PRN ×2 (05:25→10:29)
[2018-07-31] MEDS: HYDROMORPHONE HCL/PF 2MG/ML CPJ IV PRN ×2 (05:25→11:00)
[2018-07-31] MEDS: PIPERACILLIN/TAZ 3.375G PREMIX 50 ML IV SCH (05:26)
[2018-07-31] MEDS: INSULIN LISPRO 100 UNITS/ML SUBCUT SCH ×3 (06:00→17:20)
[2018-07-31 06:15] LABS: HEMATOCRIT. 40.9 % (36.0-48.0); MEAN CORPUSCULAR HEMOGLOBIN 28.2 pg (28.0-32.0); MEAN CORPUSCULAR VOLUME 88.8 fL (81.0-99.0); MEAN PLATELET VOLUME 9.4 fl (7.4-10.4); PLATELET 126 x1000/uL (130-400); RED BLOOD CELL COUNT 4.61 mill/uL (4.2-5.4); RED CELL DISTRIBUTION WIDTH 13.3 % (11.6-14.6)
[2018-07-31 06:26] LABS: CHLORIDE 112 mEq/L (98-107)
[2018-07-31] MEDS: LORAZEPAM 2MG/ML CPJ IV PRN ×2 (07:33→14:56)
[2018-07-31 08:12] LABS: PLATELET ESTIMATE SLIGHTLY DECREASED
[2018-07-31] MEDS: LEVETIRACETAM 500MG/5ML CUP PO SCH (08:30)
[2018-07-31] MEDS: AMLODIPINE 5MG TABLET PO SCH (08:31)
[2018-07-31] MEDS: DEXAMETHASONE 4MG/ML 1ML VIAL IV SCH ×3 (08:31→16:53)
[2018-07-31] MEDS: CLONIDINE 0.1MG TABLET PO SCH ×2 (08:31→16:53)
[2018-07-31] MEDS: LOSARTAN POTASSIUM 50 MG TABLET PO SCH (08:31)
[2018-07-31] MEDS ORDERED: INSULIN GLARGINE UD 100 UNITS/ML SYR SUBCUT SCH (10:00)
[2018-07-31] MEDS ORDERED: PANTOPRAZOLE SODIUM 40 MG/VIAL IV SCH (12:30)
[2018-07-31] MEDS ORDERED: PHENYLEPHRINE HCL 10 MG/ML 1ML (IV VIAL) IV ONE (15:41)
[2018-07-31] MEDS ORDERED: PROPOFOL 200MG/20ML VIAL IV ONE (15:41)
== END 2018-07-31 18:15 | DRG 720 ==
LOC: ER 17:35 → MICUNO 19:04 → EDBEDREQTM 19:10 → EDBEDREQSVC 19:10 → EDBEDREQ 19:10 → ENRESERV 19:41 → MICUSO 07-22 18:24
PROVIDERS: ADMIT Internal Medicine; ATTEND Internal Medicine
PROC: 4A10X4Z Monitoring of Central Nervous Electrical Activity, External Approach (ICD-10-PCS; 2018-07-24)
PROC: 0DH63UZ Insertion of Feeding Device into Stomach, Percutaneous Approach (ICD-10-PCS; 2018-07-26)
PROC: 0D20XUZ Change Feeding Device in Upper Intestinal Tract, External Approach (ICD-10-PCS; principal; 2018-07-27 16:00)
DX: A41.9 Sepsis, unspecified organism (principal); J96.00 Acute respiratory failure, unspecified whether with hypoxia or hypercapnia; I61.8 Other nontraumatic intracerebral hemorrhage; I61.5 Nontraumatic intracerebral hemorrhage, intraventricular; G93.41 Metabolic encephalopathy; G81.91 Hemiplegia, unspecified affecting right dominant side; E46 Unspecified protein-calorie malnutrition; E11.65 Type 2 diabetes mellitus with hyperglycemia; I44.7 Left bundle-branch block, unspecified; M47.892 Other spondylosis, cervical region; M47.896 Other spondylosis, lumbar region; E11.22 Type 2 diabetes mellitus with diabetic chronic kidney disease; N18.9 Chronic kidney disease, unspecified; I13.10 Hypertensive heart and chronic kidney disease without heart failure, with stage 1 through stage 4 chronic kidney disease, or unspecified chronic kidney disease; I25.10 Atherosclerotic heart disease of native coronary artery without angina pectoris; F03.90 Unspecified dementia, unspecified severity, without behavioral disturbance, psychotic disturbance, mood disturbance, and anxiety; N39.0 Urinary tract infection, site not specified; M19.90 Unspecified osteoarthritis, unspecified site; K29.70 Gastritis, unspecified, without bleeding; R47.1 Dysarthria and anarthria; L89.890 Pressure ulcer of other site, unstageable; J44.9 Chronic obstructive pulmonary disease, unspecified; M51.86 Other intervertebral disc disorders, lumbar region; E11.649 Type 2 diabetes mellitus with hypoglycemia without coma; R47.02 Dysphasia; H91.90 Unspecified hearing loss, unspecified ear; H26.9 Unspecified cataract; E88.09 Other disorders of plasma-protein metabolism, not elsewhere classified; E87.70 Fluid overload, unspecified; T85.528A Displacement of other gastrointestinal prosthetic devices, implants and grafts, initial encounter; Y83.3 Surgical operation with formation of external stoma as the cause of abnormal reaction of the patient, or of later complication, without mention of misadventure at the time of the procedure; Y92.238 Other place in hospital as the place of occurrence of the external cause; Z78.1 Physical restraint status; Z99.3 Dependence on wheelchair; Z68.30 Body mass index [BMI] 30.0-30.9, adult; Z87.440 Personal history of urinary (tract) infections
CPT/HCPCS: 36415; 36600; 71045; 73502; 73552; 74018; 80048; 80061; 80305; 82375; 82550; 82553; 82805; 82962; 83605; 83735; 83880; 84134; 84145; 84439; 84443; 84481; 84484; 86850; 86900; 87015; 87045; 87427; 87449; 87493; 93005; 93306; 93970; 94640; 96365; 96375; 99291; A4216; A6261; C9113; G0482; J0360; J1100; J1170; J1815; J1940; J1953; J2060; J2250; J2370; J2405; J2543; J2704; J3010; J3370; J3480; J3490; J7030; J7050; J7060; J7121; J7620